=== PATIENT | female | born 2000 | race Caucasian/White ===

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

== ENCOUNTER → 2023-07-08 | Outpatient (CLI) | payer OTHER, SELFPAY ==
[2023-07-08 13:17] LABS: Vitamin D,25 Hydroxy 27.8 ng/mL
[2023-07-08 13:32] LABS: AST(SGOT) 16 U/L (15-37); Alanine Aminotransfer ALT/SGPT 19 U/L (13-56); Albumin, Serum 3.7 g/dL (3.2-5.0); Alkaline Phosphatase 66 U/L (45-117); Bilirubin, Direct 0.11 mg/dL (0.00-0.30); Free T3 2.8 pg/mL (2.18-3.98); Globulin 3.8 g/dL (2.2-4.2); Protein, Total 7.5 g/dL (6.4-8.2); T4 Free Direct 1.02 ng/dL (0.76-1.46); Thyroid Stim Hormone (TSH) 1.28 uIU/mL (0.358-3.74)
[2023-07-09 14:10] LABS: Thyroglobulin Antibody < 1.0 IU/mL (0.0-0.9); Thyroid Peroxidase AB < 9 IU/mL (0-34)
== END | disposition home or self-care (01) ==
LOC: BFHLAB 11:00
PROVIDERS: PCP Family Medicine; Referring Provider Family Medicine; Visit Provider Family Medicine
DX: R53.83 Other fatigue (principal); F45.8 Other somatoform disorders; E55.9 Vitamin D deficiency, unspecified
CPT/HCPCS: 36415; 80076; 82306; 84439; 84443; 84481; 86376; 86800

== ENCOUNTER → 2024-04-13 | Outpatient (CLI) | payer OTHER, SELFPAY ==
--- NOTE | 2024-04-13 11:47 | US_ITS ---
EXAM: US SOFT TISSUES HEAD AND NECK, THYROID CLINICAL INDICATION: R SIDE NODULE TECHNIQUE: Greyscale and color doppler imaging was performed of the thyroid gland. COMPARISON: No relevant prior studies available. FINDINGS: LEFT THYROID LOBE: Unremarkable. Homogeneous echotexture with normal vascularity. No thyroid nodules are present. The left lobe of thyroid lobe measures 4.4 x 1.9 x 1.2 cm. RIGHT THYROID LOBE: Cystic nodule measuring 3 x 3.5 x 2 mm right lobe of the thyroid. Heterogeneous isoechoic nodule solid nodule measuring 9 x 6 x 8 mm in the right lobe of the thyroid that is wider than tall, smooth, and without without echogenic foci. The right lobe of the thyroid lobe measures 4.7 x 1.8 x 1.3 cm. ISTHMUS: Unremarkable. No thyroid nodules are present. US/Thyroid IMPRESSION: 1. Cystic nodule measuring 3 x 3.5 x 2 mm right lobe of the thyroid. TI-RADS points: 0. TI-RADS category: TR1. This nodule is benign and no FNA or follow-up is necessary. 2. Heterogeneous isoechoic nodule solid nodule measuring 9 x 6 x 8 mm in the right lobe of the thyroid that is wider than tall, ill-defined, and without without echogenic foci. TI-RADS points: 3. TI-RADS category: TR3. This nodule is mildly suspicious but no FNA or follow-up is necessary given the small size of this nodule. Electronically Signed: Severo Alston MD at 1:20 EDT ,
== END | disposition home or self-care (01) ==
PROVIDERS: PCP Family Medicine; Referring Provider Family Medicine; Visit Provider Family Medicine
DX: E04.1 Nontoxic single thyroid nodule (principal)
CPT/HCPCS: 76536

== ENCOUNTER 2024-04-20 06:58 | Outpatient (RCR) | payer OTHER, SELFPAY ==
--- NOTE | 2024-04-20 07:57 | HP.PTEVAL_ITS ---
Patient's Visit Information Visit Information Visit Information: PRISCILA MOSS is a 23 year old F referred to Physical Therapy by BLAKE Barfield with a diagnosis of BPPV. Date of Evaluation: 04/20/24 Physical Therapist: LULI Ugalde Visit Plan Frequency: 1x/Week Duration: 6 Weeks Plan: Pt will call in. She is leaving for school on Friday and will return home on some Fridays HEP: Head and eyes move horizontal between 2 targets and eyes focused on a target and horizontal head turns Subjective Subjective: The day after the eclipse she went back to school and started feeling dizzy and thought she could sleep it off and it did not go away. She was dizzy the entire week and then went to Urgent Care and she had fluid in B ears and nystagmus. She was dizzy for a full 3 weeks until it went away. She is now getting residual episodes...they are lessening. Since she got her referral she has not had much of an issue (April 12). She has no dizziness right now. She feels the overhead lights bother her or if she has to look up and down and side to side. She was getting it more when she was moving into her apartment. The room was not spinning but she just felt out of it. She did have some tension in her eyebrows also. She was really stressed the last 2 months. She does not have a h/o migraines. She starts grad school the day after . Objective Objective: -Hallpike R and L for nystagmus and dizziness Negative smooth pursuit horizontal and vertical X 30 seconds Head and eyes move together R and L X 30 seconds (she had a little bit of dizziness and the room felt a little louder) Head and eyes move together up and down X 30 seconds with no dizziness Focused on object with horizontal head movements X 20 seconds and increased dizziness CATSIB 120/120 Balance/Special Test Scores CATSIB Score (Max score 120 seconds): 120 Dizziness Score: 22 Goals Goal 1:: I HEP Goal 2:: Abolish dizziness with head turns in standing Rehabilitation Potential Rehabilitation Potential: Good Anticipated Interventions Patient/Client Instruction: Educate patient on: Condition and Plan of Care For the Purpose of:: To improve nutrient delivery to tissue, To improve muscle performance and motor function, To improve ability to perform ADL's, To increase tolerance to activity/condition/position, To improve performance and independence with ADL's and To improve safety with gait Therapeutic Exercise to Include: Strength training, Balance training and Flexibilty training For the Purpose of:: To improve performance and independence with ADL's, To i mprove ability of physical actions for home/community/work/leisure and To improve gait and locomotor functions Functional Training to Include: Gait training For the Purpose of:: To improve balance and To improve safety with gait Text: Thank you for the opportunity to evaluate your patient. For Medicare and Medicare HMO plans, please review the plan of care and approve it. It will need to be FAXED BACK to us at [phone] for Medicare purposes. For Medicare only, by signing this I certify the plan of care. Please let me know if there are questions or concerns regarding this plan of care. Physician Signature: Date:
--- NOTE | 2024-05-10 09:57 | HP.PT.NRP ---
Patient Information Patient Information: PRISCILA MOSS was seen in my office for initial evaluation on 04/20/24. The following Plan of Care was established for this patient: POC Established Initial Frequency: 1x/Week Initial Duration: 6 Weeks Anticipated Interventions Patient/Client Instruction: Educate patient on: Condition and Plan of Care For the Purpose of:: To improve nutrient delivery to tissue, To improve muscle performance and motor function, To improve ability to perform ADL's, To increase tolerance to activity/condition/position, To improve performance and independence with ADL's and To improve safety with gait Therapeutic Exercise to Include: Strength training, Balance training and Flexibilty training For the Purpose of:: To improve performance and independence with ADL's, To improve ability of physical actions for home/community/work/leisure and To improve gait and locomotor functions Functional Training to Include: Gait training For the Purpose of:: To improve balance and To improve safety with gait Last Seen Last Seen: This patient was last seen in our office . Pertinent comments regarding their Physical therapy will appear below: At this point I will be discontinuing this patient from physical therapy. I would be happy to see this patient again in the future if found appropriate by the physician. Thank you! Jasmine Campbell, MPT Balance/Gait/Functional tests Balance/Special Test Scores CATSIB Score (Max score 120 seconds): 120 Dizziness Score: 22
== END 2024-04-20 19:00 | disposition home or self-care (01) ==
LOC: PT 06:58
PROVIDERS: PCP Family Medicine; Referring Provider Physician Assistant; Visit Provider Physician Assistant
DX: H81.10 Benign paroxysmal vertigo, unspecified ear (principal)
CPT/HCPCS: 97161

== ENCOUNTER → 2024-12-03 | Outpatient (CLI) | payer OTHER, SELFPAY ==
[2024-12-03 15:32] LABS: T4 Free Direct 0.98 ng/dL (0.76-1.46)
== END | disposition home or self-care (01) ==
LOC: LAB 14:18
PROVIDERS: PCP Family Medicine; Referring Provider Nurse Practitioner Family; Visit Provider Nurse Practitioner Family
DX: E04.1 Nontoxic single thyroid nodule (principal)
CPT/HCPCS: 36415; 84439; 84443

== ENCOUNTER → 2024-12-08 | Outpatient (CLI) | payer OTHER, SELFPAY ==
--- NOTE | 2024-12-08 10:37 | US_ITS ---
STUDY: THYROID ULTRASOUND REASON FOR EXAM: Female, 24 years old. Nodule TECHNIQUE: Ultrasound evaluation of the thyroid was performed with real-time and static treviño-scale imaging. COMPARISON: 04/13/2024 FINDINGS: RIGHT LOBE: The right lobe of the thyroid gland measures 5.2 x 1.9 x 1.5 cm. There is a homogeneous echotexture. There is a simple 0.4 cm cyst. This needs no specific follow-up There is a complex 1.5 x 1.1 x 1.1 cm solid and cystic lesion which is increased in size since the previous study. On the previous study it measured 0.9 x 0.6 x 0.8 cm. This nodule is mixed cystic and solid, hypoechoic, [id number], smoothly marginated and contains no echogenic foci. This nodule is mildly suspicious. Recommend follow-up thyroid ultrasounds at 1, 3 and 5 years. LEFT LOBE: The left lobe of the thyroid gland measures 4.8 x 1.8 x 1.1 cm. There is a homogeneous echotexture. There are no demonstrated solid, cystic or complex lesions. ISTHMUS: The isthmus measures 2 mm. The regional lymph nodes are normal. US/Thyroid IMPRESSION: Enlarged right lobe of the thyroid with a simple cyst and needs no specific follow-up and an enlarging solid and cystic lesion that should be followed as described above. Sonographically normal left thyroid lobe Electronically Signed: Jose Sanchez MD at 23:48 EST ,
== END | disposition home or self-care (01) ==
LOC: OPUS 10:35
PROVIDERS: PCP Family Medicine; Referring Provider Nurse Practitioner Family; Visit Provider Nurse Practitioner Family
DX: E04.1 Nontoxic single thyroid nodule (principal)
CPT/HCPCS: 76536

== ENCOUNTER → 2024-12-08 | Outpatient (CLI) | payer OTHER, SELFPAY ==
[2024-12-08 11:17] LABS: Absolute Lymphocyte Count 2.19 X10^3/uL (0.83-4.51); Absolute Neutrophil Count 5.5 X10^3/uL (2.0-7.7); Basophil# 0.04 X10^3/uL; Basophil% 0.5 % (0-1); Eosinophil# 0.12 X10^3/uL; Eosinophils% 1.4 % (0-5); Hemoglobin 13.8 g/dL (12.0-15.0); Lymphocyte # 2.19 X10^3/ul (0.83-4.51); Lymphocyte % 25.6 % (19-41); Mean Corp Hgb Conc 32.9 g/dL (32-36); Mean Corpuscular Volume 85.2 fL (81-99); Mean Platelet Vol. 11.1 fl (6.2-12.0); Monocyte# 0.62 X10^3/uL; Monocyte% 7.3 % (0-10); NRBC Flagged by Analyzer 0 % (0-5); Neutrophil # 5.53 X10^3/uL (2.7-7.7); Neutrophil % 64.7 % (47-70); Platelet Count 233 K/mm3 (150-450); RBC Distribution Width CV 11.8 % (11.6-14.6); RBC Distribution Width SD 36.3 fl (35.1-43.9); Red Blood Count 4.93 M/mm3 (4.2-5.4); White Blood Count 8.5 K/mm3 (4.4-11.0)
[2024-12-08 12:00] LABS: ALB/GLOB Ratio 0.9 RATIO (0.9-2.4); AST(SGOT) 21 U/L (15-37); Alanine Aminotransfer ALT/SGPT 22 U/L (13-56); Albumin, Serum 3.5 g/dL (3.2-5.0); Alkaline Phosphatase 66 U/L (45-117); Anion Gap 5 (5-15); BUN 11 mg/dL (7-18); Chloride 107 mmol/L (98-107); Cholesterol 190 mg/dL (200); Creatinine, Serum 0.79 mg/dL (0.55-1.02); EST Glomerular Filtration Rate 97 mL/min (>60); Est Glom Filt Rate - Afr Amer 117 mL/min (>60); Glucose 83 mg/dL (74-106); High Density Lipoprotein 57 mg/dL; Potassium 4.3 mmol/L (3.5-5.1); Protein, Total 7.5 g/dL (6.4-8.2); Sodium Level 137 mmol/L (136-145); Triglycerides 281 mg/dL; Very Low Density Lipoprotein 56 mg/dL (5-40)
[2024-12-13 21:07] LABS: Age Gdln ACOG Testing 21-29 (.); HPV APTIMA, High Risk Negative (Negative)
[2024-12-14 07:45] LABS: HPV Reflexed? YES, CHARGE PATIENT
== END | disposition home or self-care (01) ==
LOC: BFHLAB 09:37 → LABSPEC 09:40 → LAB 09:59
PROVIDERS: PCP Family Medicine; Referring Provider Family Medicine; Visit Provider Family Medicine
DX: Z00.01 Encounter for general adult medical examination with abnormal findings (principal); Z12.4 Encounter for screening for malignant neoplasm of cervix
CPT/HCPCS: 36415; 80053; 80061; 85025; 87624; 88175; G0145

== ENCOUNTER 2025-07-01 08:00 | Outpatient (RCR) | payer OTHER, SELFPAY ==
--- NOTE | 2025-06-07 12:43 | HP.PTEVAL ---
Patient's Visit Information Visit Information Visit Information: PRISCILA MOSS is a 24 year old F referred to Physical Therapy by Dr. Rosey Pearl MD with a diagnosis of vestibular dysfunction. Date of Evaluation: 06/07/25 Physical Therapist: LUIL Ugalde Visit Plan Frequency: 2x /Week Duration: 4 Weeks Plan: 2X/ week for 4 weeks for MT for suboccip release, light distraction, trap and levator stretches, lower trap and postural strength, head and eye VOR exercises, foam with EC work, amb with head turns with HEP. HEP: standing on foam with EC, standing horizontal head turns Subjective Subjective: Issues have been happening for over a year now. It is a swaying unsteady. She has never fallen or tripped but bumped into things. She can not pinpoint a trigger. It is better in the morning and worse in the evening. She will have periods of nothing and then the last 3 weeks she has had it constantly. She had her eyes checked and they were fine. Saw and ENT and thought it was a medicine she was on and it was not. She was put on a beta sally and it did not help the dizziness and has been on it for 2 weeks. She feels more calm on it. They took her off the Wellbutrin. She feels some of the dizziness an hour or so after she eats. She describes the dizziness like she is swaying on a boat and drunk feeling. She can see fine and the lights bother her and hard for her to concentrate when it worse. She does get AL. She will fet a pressure feeling (headband pressure) when she gets dizzy at times. She can get cervicogenic AL. She has no N&T and pain is not waking her up at night. She has a neurologist appt in Oct. She has tension in upper C-spine and will get a AL from that and some dizziness. Objective Objective: Gait: walks with normal gait pattern FGA: 30/30 Standing vertical VOR increase very little dizziness Standing horizontal VOR increase dizziness and LA after 20 seconds Standing with EC X 30 seconds no dizziness or LOB Standing with EC on foam increased unsteadiness and dizziness. Neck ROM WFL Tender along occiput with suboccip release. Posture: rounded shoulders and slightly flexed head Balance/Special Test Scores Functional Gait Assessment Score: 30 % Disability: 0 Oswestry Neck Score: 6 Dizziness Score: 38 Goals Goal 1:: I HEP Goal Time Frame: 6-8 Weeks Goal 2:: Decrease dizziness with horizontal head turns with eyes X 1 min Goal Time Frame: 6-8 Weeks Goal 3:: Be able to stand on foam for 1 min with EC without increase dizziness Goal Time Frame: 6-8 Weeks Goal 4:: Increase posture with lower trap strength to help with AL and cervicogenic dizziness Goal Time Frame: 6-8 Weeks Rehabilitation Potential Rehabilitation Potential: Good Anticipated Interventions Patient/Client Instruction: Educate patient on: Condition and Plan of Care For the Purpose of:: To decrease pain, To improve nutrient delivery to tissue, To improve muscle performance and motor function, To improve ability to perform ADL's, To increase tolerance to activity/condition/position, To improve performance and independence with ADL's, To improve health of tissue, To decrease soft tissue restriction and To improve balance Therapeutic Exercise to Include: Strength training, Endurance training, Balance training, Coordination, Postural training, Flexibilty training, Neuromotor development, Passive ROM, Active ROM and Scapular Strength/Stabilization For the Purpose of:: To decrease pain, To increase ROM, To improve nutrient delivery to tissue, To improve muscle performance and motor function, To improve ability to perform ADL's, To increase tolerance to activity/condition/position, To improve performance and independence with ADL's, To decrease level of supervision to perform tasks, To improve ability of physical actions for home/community/work/leisure, To improve health of tissue, To decrease soft tissue restriction and To increase flexibility/ROM Manual Therapy Techniques to Include: Mobilization, Passive ROM and Soft tissue mobilization For the Purpose of:: To decrease pain, To increase ROM, To improve nutrient delivery to tissue, To improve muscle performance and motor function, To improve ability to perform ADL's, To increase tolerance to activity/condition/position, To decrease level of supervision to perform tasks, To improve ability of physical actions for home/community/work/leisure, To improve health of tissue, To decrease soft tissue restriction and To increase flexibility/ROM Cryotherapy (ice pack, ice massage): Yes Thermo therapy (hot pack): Yes Ultrasound (thermal/non thermal): Yes For the Purpose of:: To decrease pain, To increase ROM and To improve nutrient delivery to tissue Text: Thank you for the opportunity to evaluate your patient. For Medicare and Medicare HMO plans, please review the plan of care and approve it. It will need to be FAXED BACK to us at [phone] for Medicare purposes. For Medicare only, by signing this I certify the plan of care. Please let me know if there are questions or concerns regarding this plan of care. Physician Signature: Date:
--- NOTE | 2025-07-01 08:28 | HP.PTDCSUM ---
Discharge Summary D/C summary: It has been my pleasure to treat PRISCILA MOSS referred by Dr. Rosey Pearl MD, with the diagnosis of vestibular dysfunction for a total of 5 visit(s). Discharge Date: 07/01/25 Please see the following information for a summary of their discharge status. Subjective Subjective: Pt has been feeling pretty good. She has not felt anything since Friday. She has a mild AL right now. Pain neck: Pain Intensity (Out of 10): 0 AL: Pain Intensity (Out of 10): 1 Overall Improvement % Improvement: 85 Objective Objective/Function: Pt likes to arch her back with the foam up the wall but corrects on verbal cues Goals Goal 1:: I HEP Goal Progress: Goal Met Goal 2:: Decrease dizziness with horizontal head turns with eyes X 1 min Goal Progress: Goal Met Goal 3:: Be able to stand on foam for 1 min with EC without increase dizziness Goal Progress: Goal Met Goal 4:: Increase posture with lower trap strength to help with AL and cervicogenic dizziness Goal Progress: Progressing Plan Plan: DC PT to HEP D/C Information Discharge Comments: DC PT to HEP d/c sentence: If there are questions or concerns regarding this patient's physical therapy, please feel free to call me at [phone]. Thank you for the referral of this patient. Sincerely, Jasmine Campbell, LULI Balance/Gait/Functional tests Balance/Special Test Scores Functional Gait Assessment Score: 30 % Disability: 0 Oswestry Neck Score: 1 Dizziness Score: 12 Improvement % Improvement: 85
== END 2025-07-01 19:00 | disposition home or self-care (01) ==
LOC: PT 08:00
PROVIDERS: PCP Family Medicine; Referring Provider Family Medicine; Visit Provider Family Medicine
DX: H81.90 Unspecified disorder of vestibular function, unspecified ear (principal)
CPT/HCPCS: 97110; 97140; 97161